=== PATIENT | female | born 1965 | race African-American/Black ===

== ENCOUNTER 2019-05-19 19:10 | Emergency (ER) | payer SELFPAY ==
[~2019-05-19] VITALS: Ht 149.9 cm; Wt 59.0 kg
[2019-05-19 19:25] VITALS: BP 130/93
[2019-05-19] MEDS ORDERED: predniSONE 10 MG TABLET ONE (19:47)
[2019-05-19] MEDS ORDERED: predniSONE 20 MG TABLET ONE (19:47)
[2019-05-19] MEDS ORDERED: predniSONE 50 MG TABLET PO ONE (20:00)
== END 2019-05-19 19:53 | disposition home or self-care (01) ==
LOC: ER 19:14
DX: L25.9 Unspecified contact dermatitis, unspecified cause (principal); Z98.890 Other specified postprocedural states